=== PATIENT | female | born 1990 | race Caucasian/White ===

== ENCOUNTER 2020-03-12 23:45 | Emergency (ER) | payer OTHER ==
[2020-03-12] MEDS ORDERED: IBUPROFEN 600 MG TAB PO STA (23:56)
[2020-03-12] MEDS ORDERED: ACETAMINOPHEN TAB 325 MG TAB PO STA (23:56)
[2020-03-13 00:26] LABS: Basophils % (A) 0 %; Eosinophils % (A) 0 %; HCT 20.4 % (34.0-46.0); Lymphocytes # (A) 0.6 k/uL (1.0-4.8); Lymphocytes % (A) 5 %; MCH 33.6 pg (25.0-35.0); MCHC 34.2 g/dL (31.0-37.0); MCV 98.2 fL (80.0-100.0); Mean Platelet Volume 8.5; Monocytes # (A) 0.4 k/uL (0-1.0); Monocytes % (A) 4 %; Neutrophils # (A) 10.5 k/uL (1.3-7.7); Neutrophils % (A) 91 %; Platelet Count 224 k/uL (150-450); RBC 2.08 m/uL (3.80-5.40); RDW 13.9 % (11.5-15.5); WBC 11.6 k/uL (3.8-10.6)
[2020-03-13 00:29] LABS: INR 0.9 (<1.2); Prothrombin Time 9.8 sec (9.0-12.0)
[2020-03-13] MEDS ORDERED: ACETAMINOPHEN TAB 325 MG TAB PO STA (00:30)
[2020-03-13 00:32] LABS: ALT 13 U/L (4-34); AST 22 U/L (14-36); African American GFR (CKD) >90 (>60 ml/min/1.73 sqM); Albumin 3.6 g/dL (3.5-5.0); Alkaline Phosphatase 48 U/L (38-126); Anion Gap 7 mmol/L; Blood Urea Nitrogen 4 mg/dL (7-17); Calcium 8.7 mg/dL (8.4-10.2); Carbon Dioxide 20 mmol/L (22-30); Chloride 108 mmol/L (98-107); Glucose 136 mg/dL (74-99); Non-African American GFR(CKD) >90 (>60 ml/min/1.73 sqM); Potassium 3.4 mmol/L (3.5-5.1); Sodium 135 mmol/L (137-145); Total Bilirubin 0.1 mg/dL (0.2-1.3); Total Protein 6.1 g/dL (6.3-8.2)
[2020-03-13 00:35] LABS: D-Dimer 0.79 mg/L FEU (<0.60)
[2020-03-13] MEDS: SODIUM CHLORIDE 0.9% 500 ML 500 ML IV SCH ×3 (00:35→03:57)
--- NOTE | 2020-03-13 00:37 | ED ---
General Adult HPI - General Chief complaint: Arrhythmia/Palpitations Stated complaint: Weakness, quick heartrate Time Seen by Provider: 03/12/20 23:56 Source: patient, family Mode of arrival: wheelchair Limitations: no limitations - History of Present Illness Initial comments: Sarita is a 29 -year-old female who presented the ER with the complaint of ge neralized weakness and palpitations. She's been feeling this way all week. She denies fevers and was unaware she is febrile on arrival. Patient reports that she had been nauseated up until last week because she was however last week she reports that she miscarried. Patient reports that last Monday she went to his zoster inflated who gave her pills because she was miscarrying in the ro om to help "cleaned everything out" patient states that she then began having heavier bleeding and was evaluated at a emergency department in [place] on Monday for nausea was slightly anemic but was discharged home. Patient reports she's had heavy vaginal bleeding throughout the week she's been wearing her Smart watch which is told her her heart rates been in the 120s to 130s even at rest. She's felt very fatigued and tired. She does have some lower abdominal discomfort and dysuria. She reports she thought her vaginal bleeding had slowed until she got here and now feels like she is bleeding heavier again. Reports her last menstrual period was the end of December or beginning of January she wasn't certain how far along she was in her when she began miscarrying. - Related Data Allergies Allergy/AdvReac Type Severity Reaction Status Date / Time No Known Allergies Allergy Verified 03/12/20 23:50 Review of Systems ROS Statement: Those systems with pertinent positive or pertinent negative responses have been documented in the HPI. ROS Other: All systems not noted in ROS Statement are negative. Past Medical History Past Medical History: Asthma Additional Past Medical History / Comment(s): DDD, arthritis, scoliosis History of Any Multi-Drug Resistant Organisms: None Reported Past Surgical History: Section Additional Past Surgical History / Comment(s): wisdom teeth extraction Past Psychological History: Anxiety Smoking Status: Current every day smoker Past Alcohol Use History: None Reported Past Drug Use History: None Reported General Exam - General Exam Comments Initial Comments: Physical Exam GENERAL: Pale, ill appearing HENT: Normocephalic, Atraumatic. EYES: PERRL, EOMI Conjunctival pallor PULMONARY: Unlabored respirations. No audible rales rhonchi or wheezing was noted. CARDIOVASCULAR: There is a regular rate and rhythm without any murmurs gallops or rubs. ABDOMEN: Soft and nontender with normal bowel sounds. SKIN: Pale : Normal external genitalia dark blood in vaginal vault No malodorous discharge NEUROLOGIC: Patient is alert and oriented x3. Very poor historian Moving all extremities spontaneously MUSCULOSKELETAL: Normal extremities with adequate strength and full range of motion. No lower extremity swelling or edema. No calf tenderness. PSYCHIATRIC: Normal psychiatric evaluation. Limitations: no limitations Course Vital Signs 03/12/20 03/13/20 03/13/20 23:51 01:17 02:31 Temperature 101.7 F H 99.1 F 98.9 F Pulse Rate 112 H 101 H Respiratory 18 16 Rate Blood Pressure 146/63 122/62 O2 Sat by Pulse 99 98 Oximetry 03/13/20 03/13/20 03:40 05:18 Temperature 98.3 F Pulse Rate 98 96 Respiratory 16 16 Rate Blood Pressure 114/53 110/63 O2 Sat by Pulse 97 99 Oximetry EKG Findings - EKG Comments: EKG Findings:: EKG was obtained due to complaint palpitations, EKG was obtained at 12:04 AM, rate is 104 rhythm as sinus tachycardia, there is normal axis, normal intervals, CA 132, QRS 100, QTC is 452, no acute ST elevations or depressions no evidence of acute ischemia, infarction or right heart strain. Medical Decision Making - Medical Decision Making Patient was seen and evaluated upon arrival history was obtained from the pat ient that she is a very poor historian cannot recall all of her appointments or indications for such in the past 2 weeks. Her labs from outside hospital were requested and senna. Septic workup was initiated Labs resulted with mild leukocytosis, profound anemia with hemoglobin of 7.0 this is a drop from 9.8 on Monday at outside facility Considering her recent miscarriage and ultrasound was ordered to valuate for possible retained products she does have a an endometrium that measures 1.6 cm no evidence of an ectopic Patient is noted to have elevated d-dimer considering that she was tachycardic a CTA was ordered resulted with no signs of the PE These results were discussed with patient who is now agreeable to a pelvic exam and does report that she's had some persistent vaginal bleeding but hasn't even gone through a whole pad in the past 3 hours. Patient was resting comfortably in bed with a heart rate in 80s when I asked her to stand to remove her hands for the pelvic exam her heart rate increased to 120 she became diaphoretic to the point that her cardiac leads can no longer stay attached to her chest. Patient then lay back and reported feeling much better. Pelvic exam did have some dark blood in the vaginal vault no real and or malodorous discharge no significant discomfort with exam Patient care was discussed with gynecology manager environmental affairs Dr. Lara who recommends beta hCG, transfuse 1 unit, COVID tests, nothing by mouth for possible D&C, straight cath urine her clean catch and IV Rocephin Orders were placed patient will be placed in observation for further management, serial beta involvement and evaluation by gynecology. - Lab Data Result diagrams: 03/13/20 00:06 03/13/20 00:06 Lab Results 03/12/20 03/13/20 03/13/20 Range/Units 00:40 00:06 00:06 WBC 11.6 H (3.8-10.6) k/uL RBC 2.08 L (3.80-5.40) m/uL Hgb 7.0 L (11.4-16.0) gm/dL Hct 20.4 L (34.0-46.0) % MCV 98.2 (80.0-100.0) fL MCH 33.6 (25.0-35.0) pg MCHC 34.2 (31.0-37.0) g/dL RDW 13.9 (11.5-15.5) % Plt Count 224 (150-450) k/uL Neutrophils % 91 % Lymphocytes % 5 % Monocytes % 4 % Eosinophils % 0 % Basophils % 0 % Neutrophils # 10.5 H (1.3-7.7) k/uL Lymphocytes # 0.6 L (1.0-4.8) k/uL Monocytes # 0.4 (0-1.0) k/uL Eosinophils # 0.0 (0-0.7) k/uL Basophils # 0.0 (0-0.2) k/uL PT (9.0-12.0) sec INR (<1.2) APTT (22.0-30.0) sec D-Dimer (<0.60) mg/L FEU Sodium 135 L (137-145) mmol/L Potassium 3.4 L (3.5-5.1) mmol/L Chloride 108 H (98-107) mmol/L Carbon Dioxide 20 L (22-30) mmol/L Anion Gap 7 mmol/L BUN 4 L (7-17) mg/dL Creatinine 0.71 (0.52-1.04) mg/dL Est GFR (CKD-EPI)AfAm >90 (>60 ml/min/1.73 sqM) Est GFR (CKD-EPI)NonAf >90 (>60 ml/min/1.73 sqM) Glucose 136 H (74-99) mg/dL Plasma Lactic Acid Byron (0.7-2.0) mmol/L Calcium 8.7 (8.4-10.2) mg/dL Total Bilirubin 0.1 L (0.2-1.3) mg/dL AST 22 (14-36) U/L ALT 13 (4-34) U/L Alkaline Phosphatase 48 (38-126) U/L Troponin I (0.000-0.034) ng/mL Total Protein 6.1 L (6.3-8.2) g/dL Albumin 3.6 (3.5-5.0) g/dL TSH 0.862 (0.465-4.680) mIU/L HCG, Quant mIU/mL Urine Color Dark Red Urine Appearance Turbid H (Clear) Urine pH 6.5 (5.0-8.0) Ur Specific [place] 1.015 (1.001-1.035) Urine Protein 2+ H (Negative) Urine Glucose (UA) Negative (Negative) Urine Ketones Negative (Negative) Urine Blood Large H (Negative) Urine Nitrite Negative (Negative) Urine Bilirubin Negative (Negative) Urine Urobilinogen <2.0 (<2.0) mg/dL Ur Leukocyte Esterase Large H (Negative) Urine RBC >182 H (0-5) /hpf Urine WBC >182 H (0-5) /hpf Urine WBC Clumps Many H (None) /hpf Ur Squamous Epith Cells 11 H (0-4) /hpf Blood Type Blood Type Confirm Blood Type Recheck Bld Type Recheck Status Antibody Screen Crossmatch Spec Expiration Date 03/13/20 03/13/20 03/13/20 Range/Units 00:06 00:06 00:06 WBC (3.8-10.6) k/uL RBC (3.80-5.40) m/uL Hgb (11.4-16.0) gm/dL Hct (34.0-46.0) % MCV (80.0-100.0) fL MCH (25.0-35.0) pg MCHC (31.0-37.0) g/dL RDW (11.5-15.5) % Plt Count (150-450) k/uL Neutrophils % % Lymphocytes % % Monocytes % % Eosinophils % % Basophils % % Neutrophils # (1.3-7.7) k/uL Lymphocytes # (1.0-4.8) k/uL Monocytes # (0-1.0) k/uL Eosinophils # (0-0.7) k/uL Basophils # (0-0.2) k/uL PT 9.8 (9.0-12.0) sec INR 0.9 (<1.2) APTT 23.0 (22.0-30.0) sec D-Dimer 0.79 H (<0.60) mg/L FEU Sodium (137-145) mmol/L Potassium (3.5-5.1) mmol/L Chloride (98-107) mmol/L Carbon Dioxide (22-30) mmol/L Anion Gap mmol/L BUN (7-17) mg/dL Creatinine (0.52-1.04) mg/dL Est GFR (CKD-EPI)AfAm (>60 ml/min/1.73 sqM) Est GFR (CKD-EPI)NonAf (>60 ml/min/1.73 sqM) Glucose (74-99) mg/dL Plasma Lactic Acid Byron 1.3 (0.7-2.0) mmol/L Calcium (8.4-10.2) mg/dL Total Bilirubin (0.2-1.3) mg/dL AST (14-36) U/L ALT (4-34) U/L Alkaline Phosphatase (38-126) U/L Troponin I <0.012 (0.000-0.034) ng/mL Total Protein (6.3-8.2) g/dL Albumin (3.5-5.0) g/dL TSH (0.465-4.680) mIU/L HCG, Quant mIU/mL Urine Color Urine Appearance (Clear) Urine pH (5.0-8.0) Ur Specific [place] (1.001-1.035) Urine Protein (Negative) Urine Glucose (UA) (Negative) Urine Ketones (Negative) Urine Blood (Negative) Urine Nitrite (Negative) Urine Bilirubin (Negative) Urine Urobilinogen (<2.0) mg/dL Ur Leukocyte Esterase (Negative) Urine RBC (0-5) /hpf Urine WBC (0-5) /hpf Urine WBC Clumps (None) /hpf Ur Squamous Epith Cells (0-4) /hpf Blood Type Blood Type Confirm Blood Type Recheck Bld Type Recheck Status Antibody Screen Crossmatch Spec Expiration Date 03/13/20 03/13/20 03/13/20 Range/Units 00:06 04:32 04:50 WBC (3.8-10.6) k/uL RBC (3.80-5.40) m/uL Hgb (11.4-16.0) gm/dL Hct (34.0-46.0) % MCV (80.0-100.0) fL MCH (25.0-35.0) pg MCHC (31.0-37.0) g/dL RDW (11.5-15.5) % Plt Count (150-450) k/uL Neutrophils % % Lymphocytes % % Monocytes % % Eosinophils % % Basophils % % Neutrophils # (1.3-7.7) k/uL Lymphocytes # (1.0-4.8) k/uL Monocytes # (0-1.0) k/uL Eosinophils # (0-0.7) k/uL Basophils # (0-0.2) k/uL PT (9.0-12.0) sec INR (<1.2) APTT (22.0-30.0) sec D-Dimer (<0.60) mg/L FEU Sodium (137-145) mmol/L Potassium (3.5-5.1) mmol/L Chloride (98-107) mmol/L Carbon Dioxide (22-30) mmol/L Anion Gap mmol/L BUN (7-17) mg/dL Creatinine (0.52-1.04) mg/dL Est GFR (CKD-EPI)AfAm (>60 ml/min/1.73 sqM) Est GFR (CKD-EPI)NonAf (>60 ml/min/1.73 sqM) Glucose (74-99) mg/dL Plasma Lactic Acid Byron (0.7-2.0) mmol/L Calcium (8.4-10.2) mg/dL Total Bilirubin (0.2-1.3) mg/dL AST (14-36) U/L ALT (4-34) U/L Alkaline Phosphatase (38-126) U/L Troponin I (0.000-0.034) ng/mL Total Protein (6.3-8.2) g/dL Albumin (3.5-5.0) g/dL TSH (0.465-4.680) mIU/L HCG, Quant 8471.7 mIU/mL Urine Color Urine Appearance (Clear) Urine pH (5.0-8.0) Ur Specific [place] (1.001-1.035) Urine Protein (Negative) Urine Glucose (UA) (Negative) Urine Ketones (Negative) Urine Blood (Negative) Urine Nitrite (Negative) Urine Bilirubin (Negative) Urine Urobilinogen (<2.0) mg/dL Ur Leukocyte Esterase (Negative) Urine RBC (0-5) /hpf Urine WBC (0-5) /hpf Urine WBC Clumps (None) /hpf Ur Squamous Epith Cells (0-4) /hpf Blood Type A Positive Blood Type Confirm A Positive Blood Type Recheck No Previous Record Bld Type Recheck Status CABO Indicated Antibody Screen NEGATIVE Crossmatch See Detail Spec Expiration Date 03/16/2020 2478 Critical Care Time Critical Care Time: Yes Total Critical Care Time: 35 Critical Care Time: Critical Care Time Critical care time was exclusive of separately billable procedures and treating other patients and teaching time. Critical care was necessary to treat or prevent imminent or life-threatening deterioration. Given the critical condition in which the patient arrived, the patient was immediately assessed by myself and the nurse, and cardiac monitoring initiated due to the potential for rapid decompensation of the patient's clinical co ndition. During the course of the patients stay, I spent a considerable amount of time at the bedside performing serial re-evaluations of the patient's hemodynamic and clinical status because of the recognized potential threat to life or limb in this condition. I then had a chance to review not only all of the available current laboratory and radiographic studies obtained today, but I also reviewed old records available to me at the time. Additionally, any ancillary information available including piping engineer records were reviewed. Sequential vital signs were obtained. Disposition Clinical Impression: Symptomatic anemia, Vaginal bleeding, Sepsis Disposition: ADMITTED IP TO THIS HOSP Condition: Serious Is patient prescribed a controlled substance at d/c from ED?: No
[2020-03-13 00:56] LABS: Appearance,Urine Turbid (Clear); Bilirubin,Urine Negative (Negative); Blood,Urine Large (Negative); Color,Urine Dark Red; Glucose,Urine (UA) Negative (Negative); Ketones,Urine Negative (Negative); Leukocyte Esterase,Urine Large (Negative); Nitrite,Urine Negative (Negative); PH, Urine 6.5 (5.0-8.0); Protein,Urine 2+ (Negative); RBC,Urine >182 /hpf (0-5); Specific Gravity,Urine 1.015 (1.001-1.035); Squamous Epithelial Cell,Urine 11 /hpf (0-4); Urobilinogen,Urine <2.0 mg/dL (<2.0); WBC,Urine >182 /hpf (0-5)
--- NOTE | 2020-03-13 01:13 | XR ---
EXAMINATION TYPE: XR chest 2V DATE OF EXAM: 03/13/2020 COMPARISON: 09/04/2013 HISTORY: Right upper quadrant pain TECHNIQUE: 2 views FINDINGS: Heart and mediastinum are normal. Lungs are clear. Diaphragm is normal. Bony thorax appears normal. The pulmonary vascularity is normal. IMPRESSION: Normal chest. No change.
--- NOTE | 2020-03-13 02:06 | US ---
EXAMINATION TYPE: US transvaginal DATE OF EXAM: 03/13/2020 COMPARISON: US, CT CLINICAL HISTORY: septic s/p miscarriage - eval for retained POC. Septic s/p miscarriage, evaluate fo r retained POC. LMP unknown. . TECHNIQUE: Transvaginal (TV). Date of LMP: Unknown EXAM MEASUREMENTS: Uterus: 10.7 x 6.6 x 5.9 cm Endometrial Stripe: 2.71 cm. Difficult to clearly see borders. Limited. Right Ovary: 3.6 x 2.6 x 1.9 cm Left Ovary: 3.3 x 2.7 x 2.5 cm 1. Uterus: Anteverted Hyperechoic area with posterior shadowing seen measurin.0 x 0.7 x 0.9 cm . 2. Endometrium: Appears heterogeneous and thickened. 3. Right Ovary: Follicles seen. 4. Left Ovary: Area of mixed echogenicity and peripheral vascularity seen measurin.9 x 1.6 x 1.9 cm. *Doppler of ovaries not needed per physician. 5. Bilateral Adnexa: Appear to be wnl. 6. Posterior cul-de-sac: Fluid is seen. IMPRESSION: No adnexal mass. Mild free fluid in the cul-de-sac. Mildly thickened endometrium measures 1.6 cm. Ret ained products of conception is possible.
--- NOTE | 2020-03-13 03:16 | CT ---
EXAMINATION TYPE: CT chest angio for PE DATE OF EXAM: 03/13/2020 COMPARISON: 01/21/2011 HISTORY: elevated d-dimer CT DLP: 349 mGycm Automated exposure control for dose reduction was used. CONTRAST: Performed with IV Contrast, patient injected with 50mL mL of Isovue 370. Multiple axial sections were obtained from the thoracic inlet to the diaphragm with IV contrast and 3 -D post processed images. The lungs are clear of consolidation. There is no evidence of a pulmonary mass. There is no pleural e ffusion. There is no pericardial effusion. Heart size is normal. The bronchi appear normal. There is no mediastinal adenopathy. There are no hilar masses. There is normal contrast opacification of the pulmonary arteries. There are no filling defects. Thora cic aorta is intact. There is no aneurysm or dissection. Thoracic spine is intact. Bony thorax is intact. Upper abdominal soft tissues appear normal. IMPRESSION: No evidence of pulmonary embolism. Negative exam. No adverse change compared to old exam.
[2020-03-13] MEDS ORDERED: NALOXONE 0.4 MG/ML 1 ML VIAL IV PRN (04:56)
[2020-03-13] MEDS ORDERED: ONDANSETRON 4 MG/2 ML VIAL IVP PRN (04:56)
[2020-03-13] MEDS ORDERED: SODIUM CHLORIDE 0.9% 1,000 ML IV SCH (05:00)
[2020-03-13 05:46] LABS: Appearance,Urine Clear (Clear); Bilirubin,Urine Negative (Negative); Blood,Urine Negative (Negative); Color,Urine Light Yellow; Glucose,Urine (UA) Negative (Negative); Ketones,Urine 1+ (Negative); Leukocyte Esterase,Urine Negative (Negative); Nitrite,Urine Negative (Negative); Protein,Urine Negative (Negative); Specific Gravity,Urine 1.024 (1.001-1.035); Urobilinogen,Urine <2.0 mg/dL (<2.0)
[2020-03-13 06:20] VITALS: BP 111/68; PULSE 93; RESP 20; TEMP 98.7
[2020-03-13 08:43] LABS: Amphetamine Screen,Urine Not Detected (NotDetected); Benzodiazepines Screen,Urine Not Detected (NotDetected); Cocaine Screen,Urine Not Detected (NotDetected); Methadone Screen, Urine Not Detected (NotDetected); Opiate Screen,Urine Not Detected (NotDetected); Phencyclidine Screen,Urine Not Detected (NotDetected); Tricyclic Antidepressant,Urine Not Detected (NotDetected); Urn Cannabinoid Scrn Detected (NotDetected)
[2020-03-13 08:44] LABS: Barbiturate Screen,Urine Not Detected (NotDetected); Oxycodone Screen, Urine Not Detected (NotDetected)
[2020-03-17 15:24] LABS: C. trachomatis,PCR Equivocal (Neg,Equiv); Chlamydia trachomatis Source Endocervical; N. gonorrhoeae,PCR Equivocal (Neg,Equiv); Neisseria Source Endocervical
== END 2020-03-13 06:21 | disposition left against medical advice (07) ==
LOC: EC 23:45 → UNDOADMOB 03-13 04:56 → 3SCARD 03-13 04:56
DX: A41.9 Sepsis, unspecified organism (principal); N93.9 Abnormal uterine and vaginal bleeding, unspecified; D64.9 Anemia, unspecified; D72.829 Elevated white blood cell count, unspecified; F17.200 Nicotine dependence, unspecified, uncomplicated; Z53.29 Procedure and treatment not carried out because of patient's decision for other reasons
CPT/HCPCS: 36415; 93005; 86900; 86901; 85379; 80053; 84443; 83605; 84484; 85025; 85610; 85730; 86850; 81003; 81001; 84702; 87040; 87491; 87591; 80306; 87086; 87077; 87186; 71046; 76830; 71275; 99291; 96365; 96361 ×4; U0003; J0696; Q9967

== ENCOUNTER 2020-03-13 18:12 | Observation (INO) | payer OTHER ==
--- NOTE | 2020-03-13 18:46 | ED ---
General Adult HPI - General Chief complaint: Vaginal Bleeding Stated complaint: Poss sepsis Time Seen by Provider: 03/13/20 18:22 Source: patient Mode of arrival: ambulatory Limitations: no limitations - History of Present Illness Initial comments: 29-year-old female patient presents to the emergency department today for reevaluation. Patient was seen and evaluated early this morning was diagnosed with a missed and anemia. Patient states that she was approximately 8- 10 weeks when she began to miscarry. States that she sees an OBGYN in [place]. States that about 1 week ago she started to have heavy vaginal bleeding. States that the bleeding persisted for the entire week and continues today. She states she is having "moderate" bleeding, changing her pads about every 3 hours, and is passing clots. Patient states she has been having some dizziness especially with standing. She reports suprapubic and low back cramping and pain. She also reports nausea and headache. According to her previous chart she did have a fever upon arrival. She denies any fever or chills today. Patient was to be admitted to the hospital this morning for blood transfusion and possible D&C, but left against medical advice in order to make arrangements for her children. Patient denies any recent rash, cough, shortness of breath, chest pain, constipation, back pain, numbness, tingling, hematuria, dysuria, urinary urgency, urinary frequency, or any other complaints. - Related Data Allergies Allergy/AdvReac Type Severity Reaction Status Date / Time No Known Allergies Allergy Verified 03/13/20 18:20 Review of Systems ROS Statement: Those systems with pertinent positive or pertinent negative responses have been documented in the HPI. ROS Other: All systems not noted in ROS Statement are negative. Past Medical History Past Medical History: Asthma Additional Past Medical History / Comment(s): DDD, arthritis, scoliosis History of Any Multi-Drug Resistant Organisms: None Reported Past Surgical History: Section Additional Past Surgical History / Comment(s): wisdom teeth extraction Past Psychological History: Anxiety Smoking Status: Current every day smoker Past Alcohol Use History: None Reported Past Drug Use History: None Reported General Exam Limitations: no limitations General appearance: alert, in no apparent distress, other (This is a well- developed, well-nourished adult female patient in no acute distress. Vital signs upon presentation are temperature 98.3F, pulse 107, respirations 18, blood pressure 126/68, pulse ox 100% on room air.) Eye exam: Present: normal appearance, PERRL, EOMI. Absent: scleral icterus, conjunctival injection, periorbital swelling ENT exam: Present: normal exam, normal oropharynx, mucous membranes moist Respiratory exam: Present: normal lung sounds bilaterally. Absent: respiratory distress, wheezes, rales, rhonchi, stridor Cardiovascular Exam: Present: normal rhythm, tachycardia, normal heart sounds. Absent: systolic murmur, diastolic murmur, rubs, gallop, clicks GI/Abdominal exam: Present: soft, tenderness (Suprapubic tenderness), normal bowel sounds. Absent: distended, guarding, rebound, rigid Neurological exam: Present: alert, oriented X3, CN II-XII intact Psychiatric exam: Present: normal affect, normal mood Skin exam: Present: warm, dry, intact, normal color. Absent: rash Course Vital Signs 03/13/20 03/13/20 03/13/20 18:14 20:49 20:52 Temperature 98.3 F 99.8 F H 99.8 F H Pulse Rate 107 H 97 96 Respiratory 18 18 18 Rate Blood Pressure 126/68 108/65 111/63 O2 Sat by Pulse 100 Oximetry 03/13/20 21:02 Temperature 99.6 F Pulse Rate 97 Respiratory 18 Rate Blood Pressure 113/71 O2 Sat by Pulse Oximetry Medical Decision Making - Medical Decision Making 29-year-old female patient presents to the emergency department today for evaluation of vaginal bleeding, dizziness. She was approximately 8-10 weeks when she started to have vaginal bleeding and was diagnosed with spontaneous . Patient was evaluated this morning was admitted for blood transfusion and possible D&C, but patient left AMA with plans to return after making arrangements for her children. Patient returns to be admitted. Labs repeated shows decreased hemoglobin at 5.8. V/S show tachycardia with stable BP. Dr. Valiente was notified and will come in to evaluate patient and perform D&C. Patient is agreeable. - Lab Data Result diagrams: 03/13/20 19:30 03/13/20 19:05 Lab Results 03/13/20 03/13/20 03/13/20 Range/Units 19:05 19:05 19:30 WBC 5.2 (3.8-10.6) k/uL RBC 1.81 L (3.80-5.40) m/uL Hgb 5.8 L* (11.4-16.0) gm/dL Hct 17.8 L* (34.0-46.0) % MCV 98.7 (80.0-100.0) fL MCH 31.8 (25.0-35.0) pg MCHC 32.2 (31.0-37.0) g/dL RDW 13.8 (11.5-15.5) % Plt Count 200 (150-450) k/uL Neutrophils % 81 % Lymphocytes % 12 % Monocytes % 4 % Eosinophils % 2 % Basophils % 0 % Neutrophils # 4.2 (1.3-7.7) k/uL Lymphocytes # 0.6 L (1.0-4.8) k/uL Monocytes # 0.2 (0-1.0) k/uL Eosinophils # 0.1 (0-0.7) k/uL Basophils # 0.0 (0-0.2) k/uL PT 10.8 (9.0-12.0) sec INR 1.0 (<1.2) APTT 24.4 (22.0-30.0) sec Sodium 139 (137-145) mmol/L Potassium 3.3 L (3.5-5.1) mmol/L Chloride 111 H (98-107) mmol/L Carbon Dioxide 18 L (22-30) mmol/L Anion Gap 10 mmol/L BUN 5 L (7-17) mg/dL Creatinine 0.55 (0.52-1.04) mg/dL Est GFR (CKD-EPI)AfAm >90 (>60 ml/min/1.73 sqM) Est GFR (CKD-EPI)NonAf >90 (>60 ml/min/1.73 sqM) Glucose 96 (74-99) mg/dL Calcium 8.1 L (8.4-10.2) mg/dL Total Bilirubin 0.2 (0.2-1.3) mg/dL AST 25 (14-36) U/L ALT 16 (4-34) U/L Alkaline Phosphatase 37 L (38-126) U/L Total Protein 5.4 L (6.3-8.2) g/dL Albumin 3.0 L (3.5-5.0) g/dL HCG, Quant 5862.8 mIU/mL Blood Type Blood Type Recheck Bld Type Recheck Status Antibody Screen Crossmatch Spec Expiration Date 03/13/20 Range/Units 19:30 WBC (3.8-10.6) k/uL RBC (3.80-5.40) m/uL Hgb (11.4-16.0) gm/dL Hct (34.0-46.0) % MCV (80.0-100.0) fL MCH (25.0-35.0) pg MCHC (31.0-37.0) g/dL RDW (11.5-15.5) % Plt Count (150-450) k/uL Neutrophils % % Lymphocytes % % Monocytes % % Eosinophils % % Basophils % % Neutrophils # (1.3-7.7) k/uL Lymphocytes # (1.0-4.8) k/uL Monocytes # (0-1.0) k/uL Eosinophils # (0-0.7) k/uL Basophils # (0-0.2) k/uL PT (9.0-12.0) sec INR (<1.2) APTT (22.0-30.0) sec Sodium (137-145) mmol/L Potassium (3.5-5.1) mmol/L Chloride (98-107) mmol/L Carbon Dioxide (22-30) mmol/L Anion Gap mmol/L BUN (7-17) mg/dL Creatinine (0.52-1.04) mg/dL Est GFR (CKD-EPI)AfAm (>60 ml/min/1.73 sqM) Est GFR (CKD-EPI)NonAf (>60 ml/min/1.73 sqM) Glucose (74-99) mg/dL Calcium (8.4-10.2) mg/dL Total Bilirubin (0.2-1.3) mg/dL AST (14-36) U/L ALT (4-34) U/L Alkaline Phosphatase (38-126) U/L Total Protein (6.3-8.2) g/dL Albumin (3.5-5.0) g/dL HCG, Quant mIU/mL Blood Type A Positive Blood Type Recheck A Pos Bld Type Recheck Status No Antibody Screen NEGATIVE Crossmatch See Detail Spec Expiration Date 03/16/2020 - 2347 Disposition Clinical Impression: Missed , Anemia Disposition: ADMITTED IP TO THIS [facility] Condition: Serious Referrals: Romeo Torres MD [Primary Care Provider] - 1-2 days Decision to Admit Reason: Admit from EC Decision Date: 03/13/20 Decision Time: 21:22
[2020-03-13 19:34] LABS: Partial Thromboplastin Time 24.4 sec (22.0-30.0); Prothrombin Time 10.8 sec (9.0-12.0)
[2020-03-13 19:37] LABS: ALT 16 U/L (4-34); AST 25 U/L (14-36); African American GFR (CKD) >90 (>60 ml/min/1.73 sqM); Alkaline Phosphatase 37 U/L (38-126); Anion Gap 10 mmol/L; Blood Urea Nitrogen 5 mg/dL (7-17); Calcium 8.1 mg/dL (8.4-10.2); Carbon Dioxide 18 mmol/L (22-30); Chloride 111 mmol/L (98-107); Glucose 96 mg/dL (74-99); Non-African American GFR(CKD) >90 (>60 ml/min/1.73 sqM); Potassium 3.3 mmol/L (3.5-5.1); Sodium 139 mmol/L (137-145); Total Bilirubin 0.2 mg/dL (0.2-1.3); Total Protein 5.4 g/dL (6.3-8.2)
[2020-03-13] MEDS ORDERED: POTASSIUM CHLORIDE ER 20 MEQ TAB.ER PO STA (19:39)
[2020-03-13 19:44] LABS: Basophils % (A) 0 %; Eosinophils # (A) 0.1 k/uL (0-0.7); Eosinophils % (A) 2 %; Lymphocytes # (A) 0.6 k/uL (1.0-4.8); Lymphocytes % (A) 12 %; MCH 31.8 pg (25.0-35.0); MCHC 32.2 g/dL (31.0-37.0); MCV 98.7 fL (80.0-100.0); Monocytes # (A) 0.2 k/uL (0-1.0); Monocytes % (A) 4 %; Neutrophils # (A) 4.2 k/uL (1.3-7.7); Neutrophils % (A) 81 %; Platelet Count 200 k/uL (150-450); RBC 1.81 m/uL (3.80-5.40); RDW 13.8 % (11.5-15.5); WBC 5.2 k/uL (3.8-10.6)
[2020-03-13 19:45] LABS: HCT 17.8 % (34.0-46.0)
[2020-03-13 19:46] LABS: HGB 5.8 gm/dL (11.4-16.0)
[2020-03-13 19:53] LABS: HCG,Quantitative Serum 5862.8 mIU/mL
[2020-03-13] MEDS ORDERED: NALOXONE 0.4 MG/ML 1 ML VIAL IV PRN (21:23)
[2020-03-13] MEDS ORDERED: cefTRIAXone IN SWFI 1,000 MG/10 ML SYRINGE IVP STA (21:42)
--- NOTE | 2020-03-13 21:46 | P.HPOB ---
History of Present Illness H&P Date: 03/13/20 Chief Complaint: Incomplete AB with anemia Patient is a 29-year-old who relates that a week ago she went to a clinic in [place] and received medication to force a miscarriage. She relates that the following day she began having some spotting and bleeding and then on Monday she started having significant amount of cramping and pain and was taken to [facility] where lab studies were done but no other treatments were rendered. The next 3 days she's had bleeding and then last night she came to [facility] and was noted to be symptomatically anemic with a hemoglobin of 7 and still some retained products appeared to be noted in the endometrium on ultras ound. It is also noted she had a temp of 101.7 and did receive his one dose of antibiotics. She was scheduled for an add-on emergent D&C this morning but signed out AGAINST MEDICAL ADVICE as she says that she had to go and take care of her children. In discussing with her this evening she does understand that she could've had significant worsening bleeding and even potentially had some type of cardiac event or due to how significant her anemia is. Last night again her hemoglobin was 7.0 and today in the emergency room it is 5.8. She is symptomatic and lightheaded and we will plan to move forward with a suction D&C this evening. Risks/benefits/alternatives were reviewed with she and her partner in great detail. She is aware of risk of bleeding and infection as well as potential risk of perforation of the uterus and/or further surgery. She is receiving her first unit of blood as suspect she'll get 1 more unit of bloodOn discharge, the patient has been prescribed through tonight and then expectation for hopeful discharged home in the morningfor the treatment of [acute pain, chronic pain, anxiety, alcohol withdrawal]. They have been provided a [ex. 3,4, 5,] day supply and MAPS was checked on [date]. [I have counseled them on the risk of opiate medications including addiction and overdose. We also discussed that mixing opiate medications with benzodiazepines, alcohol, muscle relaxers, and other drugs that depress the central nervous system can lead to serious health risks including overdose, , and disability. I informed them that it is a felony to illegally deliver, sell, or share a controlled substance. I have instructed them that unused opiates can be disposed of at a drug takeback location, which includes the [facility] Department and the [facility]. The Opioid start talking form has been signed.] I have referred them [back to their primary care physician] for follow-up care. Past medical history is otherwise unremarkable Past surgical history section 2 ex line ALLERGIES none Social history is significant for pack per day tobacco abuse however she denies alcohol or illicit drugs Family history she relates is unremarkable On physical exam current vital signs are stable approximately 1 teens over 70s and her heart rate is in the 90s. Heart currently regular, lungs clear, abdomen is soft and nontender with bowel sounds noted. Extremities are without pain. Pelvic exam is deferred until the operating room where a thorough and full pelvic exam will be performed. Past Medical History Past Medical History: Asthma Additional Past Medical History / Comment(s): DDD, arthritis, scoliosis History of Any Multi-Drug Resistant Organisms: None Reported Past Surgical History: Section Additional Past Surgical History / Comment(s): wisdom teeth extraction Past Psychological History: Anxiety Smoking Status: Current every day smoker Past Alcohol Use History: None Reported Past Drug Use History: None Reported Medications and Allergies Allergies Allergy/AdvReac Type Severity Reaction Status Date / Time No Known Allergies Allergy Verified 03/13/20 18:20 Exam Osteopathic Statement: *. No significant issues noted on an osteopathic structural exam other than those noted in the History and Physical/Consult. Vital Signs Temp Pulse Resp BP Pulse Ox 03/13/20 21:32 99.8 F H 95 18 118/69 03/13/20 21:02 99.6 F 97 18 113/71 03/13/20 20:52 99.8 F H 96 18 111/63 03/13/20 20:49 99.8 F H 97 18 108/65 03/13/20 18:14 98.3 F 107 H 18 126/68 100 Intake and Output 03/13/20 03/13/20 03/13/20 06:59 14:59 22:59 Intake Total 0 Balance 0 Intake: Blood Product 0 Rc As-1 Unit 0 [id number] Other: Weight 68.039 kg Results Result Diagrams: 03/13/20 19:30 03/13/20 19:05 Abnormal Lab Results - Last 24 Hours (Table) 06/02/2503/13/20 03/13/20 Range/Units 19:05 19:30 19:30 RBC 1.81 L (3.80-5.40) m/uL Hgb 5.8 L* (11.4-16.0) gm/dL Hct 17.8 L* (34.0-46.0) % Lymphocytes # 0.6 L (1.0-4.8) k/uL Potassium 3.3 L (3.5-5.1) mmol/L Chloride 111 H (98-107) mmol/L Carbon Dioxide 18 L (22-30) mmol/L BUN 5 L (7-17) mg/dL Calcium 8.1 L (8.4-10.2) mg/dL Alkaline Phosphatase 37 L (38-126) U/L Total Protein 5.4 L (6.3-8.2) g/dL Albumin 3.0 L (3.5-5.0) g/dL Crossmatch See Detail
[2020-03-14] MEDS ORDERED: MIDAZOLAM 2 MG/2 ML VIAL ONE (01:44)
[2020-03-14] MEDS ORDERED: PROPOFOL 10 MG/ML 20 ML VIAL IV ONE (01:44)
[2020-03-14] MEDS ORDERED: fentaNYL (PF) 50 MCG/ML 2 ML AMP ONE (01:44)
[2020-03-14] MEDS ORDERED: SODIUM CHLORIDE 0.9% 700 ML IV ONE (01:44)
[2020-03-14] MEDS ORDERED: METHYLERGONOVINE 0.2 MG/ML 1 ML AMP ONE (01:44)
--- NOTE | 2020-03-14 02:24 | P.OP ---
Date of Procedure: 03/14/20 Preoperative Diagnosis: Incomplete AB Postoperative Diagnosis: Same Procedure(s) Performed: Suction D&C Anesthesia: MAC Surgeon: Surya Valiente Estimated Blood Loss (ml): 300 Pathology: other (Products of conception) Condition: stable Disposition: floor Operative Findings: Grossly large quantity of tissue noted tickly abdomen fundal region Description of Procedure: Patient was taken to the operating suite where a general anesthetic was found be adequate. She was prepped and draped in normal sterile fashion placed in dorsal lithotomy position. Initially weighted speculum was inserted into the vagina and anterior lip of cervix identified and grasped with single-tooth tenaculum. Cervix was then fully dilated and using initially a 9 curved tip catheter suction was applied and EXCEPT were removed. Relatively large quantity of Rx was removed considering what ultrasound had reported. Once 2 passes with this were done a curette was then inserted and with gentle manipulation of the uterine lining other tissue was also removed. Included in this were 2 or 3 at least 2 cm pieces of what I suspect was placental product indicating she was likely further along than what she initially had thought. Once this was completed there was still a little bit of bleeding so methargen IM was provided and one more pass with the suction curette was done. Seeing that there still felt to be somewhat globular this to the uterus I did do another pass with a smaller curet and another large piece of the products of conception was removed and after this I cannot palpate or feel any other pieces of products of conception. therefore with bleeding significantly improved instruments are removed from the vagina. Sponge, lap, needle, brought correct 2 and patient was then taken to the recovery room in stable and satisfactory condition. We will repeat her CBC in the morning as she is on her second unit of blood now and await medical consultation for further treatment of group B strep sepsis.
[2020-03-14] MEDS: HYDROmorphone 1 MG/ML 1 ML SYRINGE IVP ONE ×4 (02:30→03:16)
[2020-03-14] MEDS: KETOROLAC 30 MG/ML 1 ML VIAL IVP PRN ×3 (03:10→18:23)
[2020-03-14 06:03] LABS: Basophils % (A) 0 %; Eosinophils % (A) 1 %; HCT 25.7 % (34.0-46.0); Lymphocytes # (A) 0.9 k/uL (1.0-4.8); Lymphocytes % (A) 18 %; MCH 31.5 pg (25.0-35.0); MCHC 32.6 g/dL (31.0-37.0); MCV 96.5 fL (80.0-100.0); Mean Platelet Volume 8.2; Monocytes # (A) 0.3 k/uL (0-1.0); Monocytes % (A) 5 %; Neutrophils # (A) 3.8 k/uL (1.3-7.7); Neutrophils % (A) 74 %; Platelet Count 172 k/uL (150-450); RBC 2.66 m/uL (3.80-5.40); RDW 15.2 % (11.5-15.5); WBC 5.2 k/uL (3.8-10.6)
[2020-03-14] MEDS: SODIUM CHLORIDE 0.9% 1,000 ML IV SCH (06:14)
[2020-03-14 06:36] LABS: HGB 8.4 gm/dL (11.4-16.0)
[2020-03-14] MEDS: METHYLERGONOVINE 0.2 MG TAB PO SCH ×3 (09:25→21:22)
--- NOTE | 2020-03-14 12:25 | P.PN ---
Progress Note - Text Progress Note Date: 03/14/20 Linda seen and evaluated this morning postop day 0. She is resting comfortably in bed voices no complaints of pain. Her bleeding is significantly improved. We are awaiting a medical consultation for her sepsis in antibiotic choices but her white count is still 5.2. After 2 units of packed red blood cells her hemoglobin is now 8.4 it appears stable. She voices no real complaints and all questions are answered for her at this time. Assessment postop day 0 with improved hemoglobin Plan await medical consultation for sepsis.
[2020-03-14] MEDS ORDERED: ALPRAZolam 0.25 MG TAB PO PRN (14:10)
[2020-03-14] MEDS ORDERED: NICOTINE 21MG/24HR PATCH TRANSDERM SCH (14:15)
[2020-03-14 14:46] LABS: HGB 8.7 gm/dL (11.4-16.0); MCH 32.5 pg (25.0-35.0); MCHC 33.4 g/dL (31.0-37.0); MCV 97.3 fL (80.0-100.0); Platelet Count 168 k/uL (150-450); RBC 2.67 m/uL (3.80-5.40); RDW 15.6 % (11.5-15.5)
[2020-03-14 14:52] LABS: African American GFR (CKD) >90 (>60 ml/min/1.73 sqM); Anion Gap 6 mmol/L; Blood Urea Nitrogen 8 mg/dL (7-17); Calcium 8.1 mg/dL (8.4-10.2); Carbon Dioxide 20 mmol/L (22-30); Chloride 111 mmol/L (98-107); Glucose 96 mg/dL (74-99); Non-African American GFR(CKD) >90 (>60 ml/min/1.73 sqM); Sodium 137 mmol/L (137-145)
--- NOTE | 2020-03-14 15:05 | P.CONS ---
History of Present Illness - Reason for Consult Consult date: 03/14/20 Medical management for Sepsis Requesting physician: Surya Valiente - Chief Complaint Sepsis with Acute blood loss anemia secondary to miscarriage - History of Present Illness This is a 29-year-old female who underwent therapy to force a miscarriage. Shortly thereafter, patient began to have significant cramping and pain and was taken to [facility]. Blood work was done but no treatments were made. Patient began to bleed for 3 days before coming to [facility]. She was symptomatically anemic and had a temperature of 101.7. Patient had an emergent D&C. Patient was given a 2 units of PRBCs. Hemoglobin is currently stable at 8.7. There was concern for sepsis secondary to the miscarriage. Patient was placed on IV Rocephin. Patient is currently afebrile. Vitals are within normal limits. Patient denies chest pain, shortness of breath, nausea, vomiting, fevers, or chills. Patient would like nicotine replacement since she is in every day smoker. Patient admits to being agitated and just wants to go home. Review of Systems A 12 point review of systems was assessed patient was only positive for those pertinent in HPI Past Medical History Past Medical History: Asthma Additional Past Medical History / Comment(s): DDD, arthritis, scoliosis History of Any Multi-Drug Resistant Organisms: None Reported Past Surgical History: Section Additional Past Surgical History / Comment(s): wisdom teeth extraction Past Anesthesia/Blood Transfusion Reactions: No Reported Reaction Past Psychological History: Anxiety Smoking Status: Current every day smoker Past Alcohol Use History: None Reported Past Drug Use History: None Reported - Past Family History Mother Family Medical History: No Reported History Medications and Allergies Allergies Allergy/AdvReac Type Severity Reaction Status Date / Time No Known Allergies Allergy Verified 03/13/20 18:20 Physical Exam Osteopathic Statement: *. No significant issues noted on an osteopathic structural exam other than those noted in the History and Physical/Consult. Vitals: Vital Signs Temp Pulse Pulse Resp BP BP Pulse Ox 03/14/20 12:00 97.7 F 85 16 103/64 03/14/20 04:00 97.4 F L 80 15 100/61 99 03/14/20 03:15 84 16 108/59 100 03/14/20 03:02 84 16 115/57 100 03/14/20 02:45 87 16 100/50 100 03/14/20 02:27 98 F 94 16 104/55 100 03/14/20 00:25 99.8 F H 98 16 110/72 03/14/20 00:15 99.6 F 98 18 118/68 03/14/20 00:13 99.8 F H 98 16 118/72 03/13/20 21:44 99.8 F H 100 20 116/64 100 03/13/20 21:32 99.8 F H 95 18 118/69 03/13/20 21:02 99.6 F 97 18 113/71 03/13/20 20:52 99.8 F H 96 18 111/63 03/13/20 20:49 99.8 F H 97 18 108/65 03/13/20 18:14 98.3 F 107 H 18 126/68 100 Intake and Output 03/13/20 03/14/20 03/14/20 22:59 06:59 14:59 Intake Total 0 720 Output Total 200 Balance 0 520 Intake: IV 100 Blood Product 0 620 Rc As-1 Unit 310 [id number] Rc As-1 Unit 0 310 [id number] Output: Estimated Blood Loss 200 Other: # Voids 1 Weight 68.039 kg 68.039 kg General: [non toxic], [no distress], [appears at stated age] Derm: [warm], [dry] Head: [atraumatic], [normocephalic], [symmetric] Eyes: [EOMI], [no lid lag], [anicteric sclera] Mouth: [no lip lesion], [mucus membranes moist] Cardiovascular: [S1S2 reg], [no murmur], [positive posterior tibial pulse bilateral], Lungs: [CTA bilateral], [no rhonchi, no rales] , [no accessory muscle use] Abdominal: [soft], [ nontender to palpation], [no guarding], [no appreciable organomegaly] Ext: [no gross muscle atrophy], [no edema], [no contractures] Neuro: [ CN II-XI grossly intact], [no focal neuro deficits] Psych: [Alert], [oriented], [appropriate affect] Results CBC & Chem 7: 03/14/20 05:50 03/13/20 19:05 Labs: Abnormal Lab Results - Last 24 Hours (Table) 03/13/20 03/13/20 03/13/20 Range/Units 19:05 19:30 19:30 RBC 1.81 L (3.80-5.40) m/uL Hgb 5.8 L* (11.4-16.0) gm/dL Hct 17.8 L* (34.0-46.0) % Lymphocytes # 0.6 L (1.0-4.8) k/uL Potassium 3.3 L (3.5-5.1) mmol/L Chloride 111 H (98-107) mmol/L Carbon Dioxide 18 L (22-30) mmol/L BUN 5 L (7-17) mg/dL Calcium 8.1 L (8.4-10.2) mg/dL Alkaline Phosphatase 37 L (38-126) U/L Total Protein 5.4 L (6.3-8.2) g/dL Albumin 3.0 L (3.5-5.0) g/dL Crossmatch See Detail 03/14/20 Range/Units 05:50 RBC 2.66 L (3.80-5.40) m/uL Hgb 8.4 L D (11.4-16.0) gm/dL Hct 25.7 L (34.0-46.0) % Lymphocytes # 0.9 L (1.0-4.8) k/uL Potassium (3.5-5.1) mmol/L Chloride (98-107) mmol/L Carbon Dioxide (22-30) mmol/L BUN (7-17) mg/dL Calcium (8.4-10.2) mg/dL Alkaline Phosphatase (38-126) U/L Total Protein (6.3-8.2) g/dL Albumin (3.5-5.0) g/dL Crossmatch Assessment and Plan Assessment: 1. Sepsis likely caused by MITER SAWYER etiology after remnants of miscarriage remained patient is status post D & C Agree with Rocephin for gram negative coverage Will add Flagly for anaeriobic coverage If patient is to be discharged in the near future Can change rocephin to oral doxycycline 100mg po BID x 10 days and switch IV flagyl to oral Flagyl 500mg po QID x 10 days. 2. Acute blood loss anemia secondary to miscarriage Hemoglobin is stable at 8.7 Continue to monitor CBC 3. Hypokalemia Replaced with KCl Check magnesium level 4. Anxiety and agitation Xanax when necessary 5. History of tobacco dependence NicoDerm CQ daily 6. GI prophylaxis 7. DVT prophylaxis 8. AM labs Time with Patient: Greater than 30
[2020-03-14] MEDS: metroNIDAZOLE-NS PMX 500 MG in SALINE 1 100ML.BAG IVPB SCH ×2 (16:06→21:22)
[2020-03-14 17:21] LABS: Appearance,Urine Clear (Clear); Bilirubin,Urine Negative (Negative); Blood,Urine Small (Negative); Color,Urine Yellow; Glucose,Urine (UA) Negative (Negative); Ketones,Urine Negative (Negative); Leukocyte Esterase,Urine Negative (Negative); Mucus,Urine Few /hpf; Nitrite,Urine Negative (Negative); Protein,Urine Trace (Negative); RBC,Urine 51 /hpf (0-5); Specific Gravity,Urine 1.024 (1.001-1.035); Squamous Epithelial Cell,Urine 2 /hpf (0-4); WBC,Urine 3 /hpf (0-5)
[2020-03-14] MEDS: PANTOPRAZOLE 40 MG TABLET PO SCH (21:22)
[2020-03-15] MEDS: SODIUM CHLORIDE 0.9% 1,000 ML IV SCH (02:49)
[2020-03-15] MEDS: metroNIDAZOLE-NS PMX 500 MG in SALINE 1 100ML.BAG IVPB SCH ×2 (02:49→09:03)
[2020-03-15 05:50] LABS: Basophils % (A) 1 %; Eosinophils # (A) 0.2 k/uL (0-0.7); Eosinophils % (A) 5 %; HCT 24.9 % (34.0-46.0); HGB 8.3 gm/dL (11.4-16.0); Hypochromasia Slight; Lymphocytes # (A) 1.6 k/uL (1.0-4.8); Lymphocytes % (A) 37 %; MCH 32.7 pg (25.0-35.0); MCHC 33.5 g/dL (31.0-37.0); MCV 97.5 fL (80.0-100.0); Mean Platelet Volume 8.4; Monocytes # (A) 0.3 k/uL (0-1.0); Monocytes % (A) 7 %; Neutrophils # (A) 2.1 k/uL (1.3-7.7); Neutrophils % (A) 48 %; Platelet Count 198 k/uL (150-450); RBC 2.55 m/uL (3.80-5.40); RDW 15.4 % (11.5-15.5); WBC 4.3 k/uL (3.8-10.6)
[2020-03-15 06:08] LABS: African American GFR (CKD) >90 (>60 ml/min/1.73 sqM); Anion Gap 4 mmol/L; Blood Urea Nitrogen 12 mg/dL (7-17); Calcium 7.9 mg/dL (8.4-10.2); Carbon Dioxide 21 mmol/L (22-30); Chloride 114 mmol/L (98-107); Glucose 92 mg/dL (74-99); Magnesium 1.9 mg/dL (1.6-2.3); Non-African American GFR(CKD) >90 (>60 ml/min/1.73 sqM); Potassium 4.2 mmol/L (3.5-5.1); Sodium 139 mmol/L (137-145)
[2020-03-15] MEDS: PANTOPRAZOLE 40 MG TABLET PO SCH (07:55)
[2020-03-15] MEDS: KETOROLAC 30 MG/ML 1 ML VIAL IVP PRN (07:59)
[2020-03-15] MEDS: METHYLERGONOVINE 0.2 MG TAB PO SCH (08:03)
[2020-03-15 08:13] VITALS: BP 109/62; PULSE 84; RESP 16; TEMP 98
--- NOTE | 2020-03-15 08:34 | P.DS ---
Providers Date of admission: 03/13/20 20:18 Expected date of discharge: 03/15/20 Attending physician: Surya Valiente Consults: 03/14/20 10:59 Consult Physician Urgent Consulting Provider: Carina Porter Consult Reason/Comments: sepsis Do you want consulting provider notified?: Yes Primary care physician: Romeo Torres MD Hospital Course: [place] doing very well this morning. She does complain of a mild headache but is improving following medication. She has had no fever and greater than 24 realistically almost 48 hours with antibiotics will plan discharged home today o n doxycycline 100 mg twice a day for 10 days and Flagyl 500 mg twice a day for 10 days. She is to follow up with her PCP once 2 days as well as follow-up with me in 1 week. All questions are answered for her at this time. Her vital signs again are stable and she is afebrile. Heart regular, lungs clear, extremities without pain. Abdomen soft and nontender. Positive bowel sounds are noted. We did discuss briefly her tobacco use and she is not committed to stopping smoking therefore nicotine patches are not provided she can follow up with her PCP defer investigate alternatives for her to quit smoking. No other medications or prescribed. She does relate that her bleeding is significantly stores naval and she at this time voices no complaints and is requesting discharge home today. Discharge instructions were thoroughly reviewed with her and all questions again are answered. Patient Condition at Discharge: Good Plan - Discharge Summary New Discharge Prescriptions: New metroNIDAZOLE [Flagyl] 500 mg PO BID 10 Days #20 tab Doxycycline [Vibramycin] 100 mg PO BID 10 Days #20 capsule Discharge Medication List Doxycycline [Vibramycin] 100 mg PO BID 10 Days #20 capsule 03/15/20 [Rx] metroNIDAZOLE [Flagyl] 500 mg PO BID 10 Days #20 tab 03/15/20 [Rx] Follow up Appointment(s)/Referral(s): Romeo Torres MD [Primary Care Provider] - 1-2 days Surya Valiente DO [Doctor of Osteopathic Medicine] - 1 Week Activity/Diet/Wound Care/Special Instructions: No heavy lifting, limit stairs and driving, pelvic rest. Call for any high temperatures, heavy bleeding or severe pain. Finish all antibiotics Discharge Disposition: HOME SELF-CARE
== END 2020-03-15 12:00 | disposition home or self-care (01) ==
LOC: EC 18:12 → 4FBP 20:18 → INTOOBSV 20:18 → UNDODISIN 03-15 12:00
PROVIDERS: ADMIT Obstetrics & Gynecology; ATTEND Obstetrics & Gynecology
DX: O03.37 Sepsis following incomplete spontaneous abortion (principal); A41.9 Sepsis, unspecified organism; J45.909 Unspecified asthma, uncomplicated; F17.210 Nicotine dependence, cigarettes, uncomplicated; M19.90 Unspecified osteoarthritis, unspecified site; M41.9 Scoliosis, unspecified; G89.29 Other chronic pain; F41.9 Anxiety disorder, unspecified; D64.9 Anemia, unspecified; Z98.890 Other specified postprocedural states; E87.6 Hypokalemia; R42 Dizziness and giddiness; R51 Headache
CPT/HCPCS: 36430; 96361; 96365; 96374; 99284; 99291; 36415 ×2; 93005; 86900; 86901; 85379; 88305; 80053; 80048 ×2; 84443; 83605 ×2; 83735; 84484; 85025 ×3; 85027; 85610; 85730; 86850; 86920; 81003; 81001 ×2; 84702; 87040 ×2; 87491; 87591; 80306; 87086; 87077; 87186; 71046; 76830; 71275; 59830; G0378 ×3; P9016 ×2; U0003; S4990; J2250; J2210; J0696 ×3; J3010; J1885 ×2; J1170; J2704; Q9967